=== PATIENT | female | born 1960 | race Caucasian/White ===

== ENCOUNTER → 2021-12-07 | Outpatient (CLI) | payer SELFPAY ==
--- NOTE | 2021-12-12 10:02 | MR ---
MR liver with and without contrast HISTORY: Right upper quadrant pain, nausea and vomiting Multiplanar multisequence and postcontrast images obtained through the liver following 7.5 cc Gadavis t IV. There are no prior films available for comparison. Exam is correlated to prior outside reports dated 11/01/2021, 10/17/2021 Out of phase imaging through the liver shows signal drop consistent with hepatic steatosis, some foca l fatty sparing present adjacent to the gallbladder. There is no evident liver mass. No dilated intra hepatic biliary duct, the common bile duct measures approximately 10 mm which is dilated, no evident filling defect to suggest choledocholithiasis. No evident cholelithiasis. Gallbladder shows an unrem arkable appearance. There is no abnormal enhancement following contrast administration. There is no ascites or retroperitoneal adenopathy. Aorta shows normal caliber. Adrenal glands, spleen , pancreas, kidneys are within normal limits. There is no evident bowel obstruction. Lung bases show no effusion. Visualized bone marrow signal is within normal limits, there is a spinal curvature, dege nerative disc change noted in the lumbar spine. No evident pericardial effusion. IMPRESSION: Dilated common bile duct, consider gastroenterology consult. Hepatic steatosis.
== END | disposition home or self-care (01) ==
LOC: RADMRIMAIN 10:48
DX: K83.8 Other specified diseases of biliary tract (principal); K76.0 Fatty (change of) liver, not elsewhere classified
CPT/HCPCS: 74183; A9585